=== PATIENT | female | born 1945 ===

== ENCOUNTER 2018-06-30 06:00 | Day surgery (SDC) | payer OTHER ==
[~2018-06-30] VITALS: Ht 157.5 cm; Wt 70.3 kg
[~2018-06-30 06:00] MED LIST: ENALAPRIL MALEA10 MG PO; LANTUS
[2018-06-30] MEDS ORDERED: LANTUS SOL100 UNIT/1 SUBCUTANEO (10:36)
== END 2018-07-01 09:00 | disposition home or self-care (01) ==
LOC: CIR.AMB 06:00 → SURH 10:59 → EDSTATUS 13:15 → OB/GYN 17:58 → O/R 17:58 → CIR.AMB 07-01 09:00 → OB/GYN 07-01 10:25
DX: N85.01 Benign endometrial hyperplasia (principal); K66.0 Peritoneal adhesions (postprocedural) (postinfection); E11.9 Type 2 diabetes mellitus without complications